=== PATIENT | female | born 1955 | race Two or more races ===

== ENCOUNTER 2019-02-05 16:05 | Emergency (ER) | payer BC, OTHER ==
[~2019-02-05] VITALS: Ht 149.9 cm; Wt 68.9 kg
[~2019-02-05 16:05] MED LIST: AMLO10TA8 PO; AMLO1POW2; LEVO137T2 PO; LISI1POW; LISI40TA PO; METO25TA35 PO
[2019-02-05] MEDS ORDERED: SODIUM CHLORIDE FLUSH 10ML SYR IVF ONE (16:30)
[2019-02-05] MEDS ORDERED: ASPIRIN 81 MG TABLET CHEW PO ONE (16:30)
[2019-02-05] MEDS ORDERED: ASPIRIN 81 MG TABLET CHEW ONE (16:45)
[2019-02-05] MEDS ORDERED: CALC0.25 PO (16:47)
[2019-02-05 17:16] LABS: ALBUMIN 3.9 g/dL (3.4-5.0); ANION GAP 6 mmol/L (5-15); CALCIUM 7.7 mg/dL (8.5-10.1); CHLORIDE 105 mmol/L (98-107); CREATININE 1.34 mg/dL (0.55-1.02)
[2019-02-05 17:19] LABS: TROPONIN I < 0.015 ng/mL (0.000-0.045)
[2019-02-05 17:35] LABS: BASOPHILS # (AUTO) 0.06 x10^3/uL (0-0.1); BASOPHILS % (AUTO) 1 % (0-1); EOSINOPHILS % (AUTO) 5 % (1-7); LYMPHOCYTES % (AUTO) 42 % (22-44); MD SCAN; MEAN CORPUSCULAR HEMOGLOBIN 28.6 pg (27.0-34.8); MEAN CORPUSCULAR HGB CONC 32.8 g/dL (32.4-35.8); MEAN CORPUSCULAR VOLUME 87.1 fL (80-100); MEAN PLATELET VOLUME 8.5 fL (7.4-10.4); MONOCYTES # (AUTO) 0.27 x10^3/uL (0.2-0.8); MONOCYTES % (AUTO) 5 % (2-9); NEUTROPHILS # (AUTO) 2.82 x10^3/uL (1.8-6.8); NEUTROPHILS % (AUTO) 47 % (42-75); PLATELET COUNT 131 x10^3/uL (130-400); RED BLOOD COUNT 5.04 x10^6/uL (3.82-5.3)
--- NOTE | 2019-02-05 18:03 | NUR ---
TASK RN: PT UP TO RESTROOM AND BACK TO [facility]. STEADY UPON AMBULATION. PT AO X 4. SKIN WARM AND DRY. RESP EVEN AND UNLABORED. PT CURRENTLY DENIES CP. PT AWARE WE ARE WAITING FOR RECHECK BY JAMAAL. PT ON CONT BP, CARDIAC AND O2 MONITORS. NSR 60'S ON CAMERA TECHNICIAN. CALL LIGHT WITHIN REACH.
[2019-02-05 18:04] VITALS: BP 147/75
[2019-02-05] MEDS ORDERED: SODIUM CHLORIDE FLUSH 10ML SYR IVF PRN (18:30)
--- NOTE | 2019-02-05 18:55 | NUR ---
PT LEAVING AMA. RISKS DISCUSSED WITH DR. WHITESIDE AT BS. PT SIGNED AMA PAPERWORK.
== END 2019-02-05 19:04 | disposition left against medical advice (07) ==
LOC: ED 18:46
DX: R07.2 Precordial pain (principal); I20.9 Angina pectoris, unspecified; E78.5 Hyperlipidemia, unspecified; I10 Essential (primary) hypertension
CPT/HCPCS: 36415; 71046; 80048; 82040; 83880; 84484; 85025; 93005; 99284

== ENCOUNTER 2019-10-21 09:09 | Emergency (ER) | payer OTHER ==
[~2019-10-21] VITALS: Ht 152.4 cm; Wt 70.7 kg
[~2019-10-21 09:09] MED LIST changes: +CALC0.25 PO
[2019-10-21 11:03] LABS: BASOPHILS # (AUTO) 0.03 x10^3/uL (0-0.1); BASOPHILS % (AUTO) 0 % (0-1); EOSINOPHILS # (AUTO) 0.04 x10^3/uL (0-0.4); EOSINOPHILS % (AUTO) 1 % (1-7); LYMPHOCYTES # (AUTO) 1.92 x10^3/uL (1-3.4); LYMPHOCYTES % (AUTO) 26 % (22-44); MD NO; MEAN CORPUSCULAR HGB CONC 32.2 g/dL (32.4-35.8); MEAN PLATELET VOLUME 7.5 fL (7.4-10.4); MONOCYTES # (AUTO) 1.02 x10^3/uL (0.2-0.8); MONOCYTES % (AUTO) 14 % (2-9); NEUTROPHILS # (AUTO) 4.33 x10^3/uL (1.8-6.8); NEUTROPHILS % (AUTO) 59 % (42-75); PLATELET COUNT 211 x10^3/uL (130-400); RED BLOOD COUNT 4.65 x10^6/uL (3.82-5.3); RED CELL DISTRIBUTION WIDTH 14.2 % (9.6-15.2)
[2019-10-21 11:16] LABS: ALANINE AMINOTRANSFERASE 37 U/L (12-78); ALBUMIN 3.7 g/dL (3.4-5.0); ANION GAP 5 mmol/L (5-15); CALCIUM 8.3 mg/dL (8.5-10.1); CHLORIDE 100 mmol/L (98-107); CREATININE 1.42 mg/dL (0.55-1.02)
[2019-10-21 11:18] LABS: ALKALINE PHOSPHATASE 59 U/L (45-117); BILIRUBIN,TOTAL 0.4 mg/dL (0.2-1.0); TOTAL PROTEIN 8.4 g/dL (6.4-8.2)
[2019-10-21 12:10] VITALS: BP 130/72
--- NOTE | 2019-10-21 12:12 | NUR ---
Note dexter in EDM - 10/21/19 at 1216 by EDY pt given dc instructions and script, educated regarding rx for zithromax. pt a&o, resps even and unlabored, able to speak in full sentences. nadn. pt has no complaint at this time. pt ambulatory to dc desk with steady gait, all questions answered.
--- NOTE | 2019-10-21 12:17 | NUR ---
MD CONNOR NOTIFIED PT'S K LEVEL IS 3.0 Addendum: 10/21/19 at 1218 by EDY MD CONNRO NOTIFIED PT'S K LEVEL IS 3.0, MD TO ENTER ORDER FOR K DUR ADMIN PRIOR TO DC. 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
[2019-10-21] MEDS ORDERED: POTASSIUM CHLORIDE 20 MEQ TAB.ER.PRT ONE (12:19)
--- NOTE | 2019-10-21 12:23 | NUR ---
pt medicated per emar, tolerated well. pt given dc instructions and script, educated regarding rx for zithromax. pt a&o, resps even and unlabored, able to speak in full sentences. nadn. pt has no complaint at this time. pt ambulatory to dc desk with steady gait, all questions answered.
[2019-10-21] MEDS ORDERED: POTASSIUM CHLORIDE 20 MEQ TAB.ER.PRT PO ONE (12:30)
== END 2019-10-21 12:12 | disposition home or self-care (01) ==
LOC: ED 11:06
DX: U07.1 COVID-19 (principal); J15.9 Unspecified bacterial pneumonia; N28.9 Disorder of kidney and ureter, unspecified; E87.6 Hypokalemia; R91.8 Other nonspecific abnormal finding of lung field; I45.9 Conduction disorder, unspecified; I11.9 Hypertensive heart disease without heart failure; E78.5 Hyperlipidemia, unspecified
CPT/HCPCS: 36415; 71045; 80053; 85025; 87635; 93005; 99285

== ENCOUNTER 2019-10-27 18:54 | Observation (INO) | payer OTHER ==
[~2019-10-27] VITALS: Ht 149.9 cm; Wt 76.3 kg
--- NOTE | 2019-10-27 19:17 | NUR ---
THIS IS A 64Y F THAT COMES IN TONIGHT STS SHE WAS CALLED WITH A POSITIVE COVID RESULT AND WAS TOLD TO COME BACK IF THINGS GOT WORSE. PT STS NOW SHE FEELS WORSE TODAY BUT DOES NOT ELABORATE FURTHER. PT STS SHE HAS BEEN RESTING AND JUST FEELS SOB. PT AMBULATED W/OUT DIFFICULTY TO ROOM FROM TRIAGE. PT RA SAT 94% ABLE TO SPEAK IN FULL SENTENCES PT REPORTS TAKING TYLENOL THIS MORNING. PT CONNECTED TO MONITORING VSS NADN.
[2019-10-27 19:57] LABS: BASOPHILS # (AUTO) 0.02 x10^3/uL (0-0.1); BASOPHILS % (AUTO) 0 % (0-1); EOSINOPHILS # (AUTO) 0.05 x10^3/uL (0-0.4); EOSINOPHILS % (AUTO) 1 % (1-7); LYMPHOCYTES # (AUTO) 1.33 x10^3/uL (1-3.4); LYMPHOCYTES % (AUTO) 20 % (22-44); MD NO; MEAN CORPUSCULAR HEMOGLOBIN 28.3 pg (27.0-34.8); MEAN CORPUSCULAR HGB CONC 33.3 g/dL (32.4-35.8); MEAN PLATELET VOLUME 7.6 fL (7.4-10.4); MONOCYTES # (AUTO) 0.49 x10^3/uL (0.2-0.8); MONOCYTES % (AUTO) 8 % (2-9); NEUTROPHILS # (AUTO) 4.69 x10^3/uL (1.8-6.8); NEUTROPHILS % (AUTO) 71 % (42-75); PLATELET COUNT 236 x10^3/uL (130-400); RED BLOOD COUNT 4.72 x10^6/uL (3.82-5.3); RED CELL DISTRIBUTION WIDTH 13.8 % (9.6-15.2)
[2019-10-27 20:07] LABS: ALANINE AMINOTRANSFERASE 48 U/L (12-78); ALBUMIN 3.7 g/dL (3.4-5.0); ANION GAP 9 mmol/L (5-15); CALCIUM 8.8 mg/dL (8.5-10.1); CHLORIDE 100 mmol/L (98-107); CREATININE 1.35 mg/dL (0.55-1.02)
[2019-10-27 20:09] LABS: ALKALINE PHOSPHATASE 70 U/L (45-117); BILIRUBIN,TOTAL 0.4 mg/dL (0.2-1.0); TOTAL PROTEIN 8.8 g/dL (6.4-8.2)
[2019-10-27] MEDS ORDERED: AZITHROMYCIN 500 MG in SODIUM CHLORIDE 0.9% 250 ML IV ONE (20:30)
[2019-10-27] MEDS ORDERED: CEFTRIAXONE PMX 1GM/50ML 50 ML IVPB ONE (20:30)
[2019-10-27] MEDS ORDERED: CEFTRIAXONE PMX 1GM/50ML 50 ML ONE (20:39)
--- NOTE | 2019-10-27 21:05 | NUR ---
PIV STARTED AFTER MULITIPLE ATTEMPTS, IV ABX STARTED AT THIS TIME CULTURES DRAWN PRIOR TO ABX START.
--- NOTE | 2019-10-27 21:11 | NUR ---
REPORT TO CORNELIUS SENA PT READY FOR TRANSPORT TO ROOM 440
[2019-10-27] MEDS ORDERED: CEFTRIAXONE PMX 1GM/50ML 50 ML IV SCH (21:30)
[2019-10-27] MEDS ORDERED: THIAMINE 200 MG in SODIUM CHLORIDE 0.9% 50 ML IV SCH (21:30)
[2019-10-27] MEDS ORDERED: SODIUM CHLORIDE 0.9% 1,000 ML IV SCH (21:32)
[2019-10-27 21:51] VITALS: BP 150/90
[2019-10-27] MEDS ORDERED: POLYETHYLENE GLYCOL 17 GM PACKET PO PRN (22:00)
[2019-10-27] MEDS ORDERED: GUAIFENESIN/DM 200-20MG, 10ML UDC PO PRN (22:00)
[2019-10-27] MEDS ORDERED: ONDANSETRON ODT 4 MG PO PRN (22:00)
[2019-10-27] MEDS ORDERED: BISACODYL 10 MG SUPP PR PRN (22:00)
[2019-10-27] MEDS ORDERED: DIPHENOXYLATE/ATROPINE TABLET PO PRN (22:00)
[2019-10-27] MEDS ORDERED: ACETAMINOPHEN 325 MG TABLET PO PRN (22:00)
[2019-10-27] MEDS: AZITHROMYCIN 500 MG in SODIUM CHLORIDE 0.9% 250 ML IV SCH ×2 (22:22→22:57)
[2019-10-27] MEDS: HEPARIN 5,000 UNITS/ML, 1ML SQ SCH (22:23)
[2019-10-27 23:23] VITALS: BP 150/90
[2019-10-28] VITALS: BP 126/67
[2019-10-28] MEDS: ASCORBATE SODIUM 3,000 MG in SODIUM CHLORIDE 0.9% 250 ML IVPB SCH ×2 (00:49→06:53)
[2019-10-28] MEDS: HEPARIN 5,000 UNITS/ML, 1ML SQ SCH ×3 (05:28→21:16)
[2019-10-28] MEDS: LEVOTHYROXINE 137 MCG TABLET PO SCH (05:28)
[2019-10-28 06:00] LABS: BASOPHILS # (AUTO) 0.02 x10^3/uL (0-0.1); BASOPHILS % (AUTO) 0 % (0-1); EOSINOPHILS # (AUTO) 0.03 x10^3/uL (0-0.4); EOSINOPHILS % (AUTO) 1 % (1-7); LYMPHOCYTES # (AUTO) 1.97 x10^3/uL (1-3.4); LYMPHOCYTES % (AUTO) 31 % (22-44); MD NO; MEAN CORPUSCULAR HEMOGLOBIN 28.1 pg (27.0-34.8); MEAN CORPUSCULAR HGB CONC 32.5 g/dL (32.4-35.8); MEAN CORPUSCULAR VOLUME 86.5 fL (80-100); MEAN PLATELET VOLUME 7.3 fL (7.4-10.4); MONOCYTES # (AUTO) 0.55 x10^3/uL (0.2-0.8); MONOCYTES % (AUTO) 9 % (2-9); NEUTROPHILS % (AUTO) 60 % (42-75); PLATELET COUNT 226 x10^3/uL (130-400); RED BLOOD COUNT 4.36 x10^6/uL (3.82-5.3); RED CELL DISTRIBUTION WIDTH 13.5 % (9.6-15.2)
[2019-10-28 06:12] LABS: ANION GAP 5 mmol/L (5-15); CALCIUM 7.6 mg/dL (8.5-10.1); CHLORIDE 106 mmol/L (98-107); CREATININE 1.11 mg/dL (0.55-1.02)
[2019-10-28 08:07] VITALS: BP 127/79
[2019-10-28] MEDS: SENNA/DOCUSATE TABLET PO SCH (08:14)
[2019-10-28] MEDS: METOPROLOL TARTRATE 50 MG TAB PO SCH (08:14)
[2019-10-28] MEDS: AMLODIPINE 10 MG TAB PO SCH (08:14)
[2019-10-28] MEDS: ZINC SULFATE 220 MG CAPSULE PO SCH (08:14)
[2019-10-28] MEDS: LISINOPRIL 40 MG TABLET PO SCH (08:14)
[2019-10-28] MEDS: CALCITRIOL 0.25 MCG CAPSULE PO SCH (08:15)
[2019-10-28] MEDS ORDERED: ASCORBIC ACID 500 MG TABLET PO SCH (09:00)
[2019-10-28] MEDS: THIAMINE 100MG TABLET PO SCH ×2 (10:17→21:00)
[2019-10-28] MEDS: AZITHROMYCIN 500 MG TABLET PO SCH (10:17)
[2019-10-28 13:45] VITALS: BP 119/71
[2019-10-28] MEDS: ASCORBIC ACID 500 MG TABLET PO SCH (17:09)
[2019-10-28 18:50] VITALS: BP 120/81
[2019-10-28] MEDS ORDERED: AZITHROMYCIN 500 MG in SODIUM CHLORIDE 0.9% 250 ML IV SCH (21:30)
[2019-10-29 00:59] VITALS: BP 107/67
[2019-10-29] MEDS: HEPARIN 5,000 UNITS/ML, 1ML SQ SCH (06:35)
[2019-10-29] MEDS: LEVOTHYROXINE 137 MCG TABLET PO SCH (06:36)
[2019-10-29 07:25] VITALS: BP 127/77
[2019-10-29 07:29] LABS: ALBUMIN 3.4 g/dL (3.4-5.0); ANION GAP 8 mmol/L (5-15); CALCIUM 7.1 mg/dL (8.5-10.1); CHLORIDE 100 mmol/L (98-107)
[2019-10-29 07:36] LABS: BASOPHILS # (AUTO) 0.02 x10^3/uL (0-0.1); BASOPHILS % (AUTO) 0 % (0-1); EOSINOPHILS # (AUTO) 0.03 x10^3/uL (0-0.4); EOSINOPHILS % (AUTO) 0 % (1-7); LYMPHOCYTES # (AUTO) 2.36 x10^3/uL (1-3.4); LYMPHOCYTES % (AUTO) 30 % (22-44); MD NO; MEAN CORPUSCULAR HEMOGLOBIN 27.9 pg (27.0-34.8); MEAN CORPUSCULAR HGB CONC 32.5 g/dL (32.4-35.8); MEAN CORPUSCULAR VOLUME 85.9 fL (80-100); MEAN PLATELET VOLUME 7.7 fL (7.4-10.4); MONOCYTES # (AUTO) 0.24 x10^3/uL (0.2-0.8); MONOCYTES % (AUTO) 3 % (2-9); NEUTROPHILS % (AUTO) 67 % (42-75); PLATELET COUNT 295 x10^3/uL (130-400); RED BLOOD COUNT 4.66 x10^6/uL (3.82-5.3)
[2019-10-29 07:37] LABS: ALANINE AMINOTRANSFERASE 60 U/L (12-78); ALKALINE PHOSPHATASE 65 U/L (45-117); BILIRUBIN,TOTAL 0.4 mg/dL (0.2-1.0); CREATININE 1.18 mg/dL (0.55-1.02); TOTAL PROTEIN 8.4 g/dL (6.4-8.2)
[2019-10-29] MEDS: THIAMINE 100MG TABLET PO SCH (09:21)
[2019-10-29] MEDS: METOPROLOL TARTRATE 50 MG TAB PO SCH (09:21)
[2019-10-29] MEDS: CALCITRIOL 0.25 MCG CAPSULE PO SCH (09:21)
[2019-10-29] MEDS: ASCORBIC ACID 500 MG TABLET PO SCH (09:22)
[2019-10-29] MEDS: AZITHROMYCIN 500 MG TABLET PO SCH (09:22)
[2019-10-29] MEDS: LISINOPRIL 40 MG TABLET PO SCH (09:22)
[2019-10-29] MEDS: AMLODIPINE 10 MG TAB PO SCH (09:22)
[2019-10-29] MEDS: ZINC SULFATE 220 MG CAPSULE PO SCH (09:22)
[2019-10-29] MEDS: SENNA/DOCUSATE TABLET PO SCH (09:23)
[2019-10-29] MEDS ORDERED: PNEUMOCOCCAL 23 VACCINE IM-VACC ONE (09:30)
[2019-10-29] MEDS ORDERED: PNEUMOC 13-VALENT VACC, 0.5 ML IM-VACC ONE (09:30)
== END 2019-10-29 11:00 | disposition home or self-care (01) ==
LOC: ED 20:01 → EDIP 20:53 → INTOOBSV 20:53 → 4NW 21:26
PROVIDERS: ADMIT Internal Medicine; ATTEND Family Medicine
DX: A41.89 Other specified sepsis (principal); U07.1 COVID-19; J18.9 Pneumonia, unspecified organism; E86.0 Dehydration; E87.1 Hypo-osmolality and hyponatremia; I10 Essential (primary) hypertension; E78.5 Hyperlipidemia, unspecified; F41.1 Generalized anxiety disorder; R79.89 Other specified abnormal findings of blood chemistry; Z85.850 Personal history of malignant neoplasm of thyroid; Z79.899 Other long term (current) drug therapy; Z23 Encounter for immunization
CPT/HCPCS: 36415; 71045; 80048; 80053; 82728; 83605; 83615; 84145; 85025; 85379; 85651; 86140; 87040; 93005; 96361; 96365; 96366; 96367; 96372; 99285; G0009; G0378; J0456; J0696; J1644; J3411; J7030; J7050; 96374

== ENCOUNTER 2020-10-23 18:07 | Emergency (ER) | payer BC, OTHER ==
[~2020-10-23] VITALS: Ht 144.8 cm; Wt 66.7 kg
[~2020-10-23 18:07] MED LIST changes: +AMLO-211 PO; -AMLO10TA8 PO; -LISI40TA PO; +LISI40TA9 PO
[2020-10-23] MEDS ORDERED: DIPHENHYDRAMINE 50 MG/ML, 1ML IVPush ONE (20:00)
[2020-10-23] MEDS ORDERED: SODIUM CHLORIDE 0.9% 1,000ML IVBOLUS ONE (20:00)
[2020-10-23] MEDS ORDERED: PROCHLORPERAZINE 5 MG/ML, 2ML IVPush ONE (20:00)
[2020-10-23 20:07] LABS: BASOPHILS % (AUTO) 1 % (0-1); EOSINOPHILS % (AUTO) 6 % (1-7); LYMPHOCYTES % (AUTO) 38 % (22-44); MEAN CORPUSCULAR HGB CONC 33.5 g/dL (32.4-35.8); MEAN PLATELET VOLUME 7.4 fL (7.4-10.4); MONOCYTES % (AUTO) 9 % (2-9); NEUTROPHILS % (AUTO) 46 % (42-75); PLATELET COUNT 242 x10^3/uL (130-400); RED BLOOD COUNT 4.75 x10^6/uL (3.82-5.3); RED CELL DISTRIBUTION WIDTH 13.6 % (9.6-15.2)
[2020-10-23 20:17] LABS: ANION GAP 6 mmol/L (5-15); CHLORIDE 98 mmol/L (98-107); CREATININE 1.51 mg/dL (0.55-1.02)
[2020-10-23] MEDS ORDERED: PROCHLORPERAZINE 5 MG/ML, 2ML ONE (20:17)
[2020-10-23] MEDS ORDERED: DIPHENHYDRAMINE 50 MG/ML, 1ML ONE (20:17)
--- NOTE | 2020-10-23 22:05 | NUR ---
pt back from ct. water provided at request. pt sleepy at this time but states improvement of symptoms.
--- NOTE | 2020-10-23 22:24 | NUR ---
CT scan resulted. chart up for MD to re-eval.
--- NOTE | 2020-10-23 22:49 | NUR ---
re-evaluation done. patient discharged with instuction.verbalized understanding.
[2020-10-23 22:51] VITALS: BP 121/74
== END 2020-10-23 22:54 | disposition home or self-care (01) ==
LOC: ED 21:43
DX: R51.9 Headache, unspecified (principal); R42 Dizziness and giddiness; I10 Essential (primary) hypertension; E78.5 Hyperlipidemia, unspecified
CPT/HCPCS: 36415; 70450; 80048; 82040; 85025; 93005; 96361; 96374; 96375; 99285; J0780; J1200; J7030